=== PATIENT | male | born 1955 | race Caucasian/White ===

== ENCOUNTER 2021-12-12 08:16 | Outpatient (CLI) | payer MEDICARE, BC | END 2021-12-12 08:17 | disposition home or self-care (01) | LOC: BICULT 08:16 | PROVIDERS: ATTEND Registered Nurse Community Health | DX: E04.9 Nontoxic goiter, unspecified (principal) | CPT/HCPCS: 76536 ==

== ENCOUNTER 2023-12-23 08:22 | Day surgery (SDC) | payer MEDICARE, BC ==
[2023-12-22 14:37] VITALS: BMI 29.8
[~2023-12-23 08:22] MED LIST: Fluorouracil 100 MG, Enoxaparin 25 MG, EPINEPHrine 0.3 MG in Ophthalmic Irrigation Solu... IRR SCH
[2023-12-23] MEDS ORDERED: fentaNYL PF 100 MCG/2 ML SYRINGE ONE (09:12)
[2023-12-23] MEDS ORDERED: PROPOFOL 20 ML ONE (09:13)
[2023-12-23] MEDS ORDERED: Lidocaine 1% PF 5 ML VIAL ONE (09:13)
[2023-12-23] MEDS ORDERED: PHENYLephrine 2.5% Ophth Soln 15 ml Bottle ONE (09:52)
[2023-12-23] MEDS ORDERED: Cyclopentolate 2% Opth Drop 15 ML BOT ONE (09:52)
[2023-12-23 10:08] LABS: Anion Gap 14 mmol/L (10-20); BUN (Urea Nitrogen) 20 mg/dL (8.4-25.7); Calc. Creatinine Clearance 108 mL/min (70-130); Calcium 9.7 mg/dL (7.8-10.44); Carbon Dioxide 25 mmol/L (23-31); Chloride 105 mmol/L (98-107); Estimated GFR 91; Glucose 115 mg/dL (80-115); Potassium 4.7 mmol/L (3.5-5.1); Sodium 139 mmol/L (136-145)
[2023-12-23] MEDS ORDERED: ePHEDrine Sulfate 50 MG/10 ML VIAL ONE (10:26)
[2023-12-23] MEDS ORDERED: Lidocaine 4% PF 5 ML AMP ONE (10:37)
[2023-12-23] MEDS ORDERED: Enoxaparin 30 MG (0.3 mL) SYRINGE ONE (10:37)
[2023-12-23] MEDS ORDERED: CEFAZOLIN 1 GM VIAL ONE (10:37)
[2023-12-23] MEDS ORDERED: Bupivacaine 0.75% 10 ML VIAL ONE (10:37)
[2023-12-23] MEDS ORDERED: Triamcinolone 40 MG/ML VIAL ONE (10:37)
[2023-12-23] MEDS ORDERED: Ondansetron PF 4 MG/2 ML Vial ONE (12:10)
[2023-12-23] MEDS ORDERED: Midazolam HCl 2 mg/2 ml Vial ONE (12:25)
== END 2023-12-23 14:15 | disposition home or self-care (01) ==
LOC: SDC 08:22
PROVIDERS: ATTEND Ophthalmology Retina Specialist
PROC: 08943ZZ Drainage of Right Vitreous, Percutaneous Approach (ICD-10-PCS; principal; 2023-12-23)
DX: H33.021 Retinal detachment with multiple breaks, right eye (principal)
CPT/HCPCS: 67113; 80048; 93005; C1814; J0171; J0690; J1650; J2250; J2405; J2704; J3301; J3490; J9190; 93010

== ENCOUNTER 2024-04-20 06:28 | Day surgery (SDC) | payer MEDICARE, BC ==
[2024-04-18 11:06] VITALS: BMI 29.8
[~2024-04-20 06:28] MED LIST changes: +EPINEPHrine 0.3 MG in Ophthalmic Irrigation Solution 500 ML IRR SCH; -Fluorouracil 100 MG, Enoxaparin 25 MG, EPINEPHrine 0.3 MG in Ophthalmic Irrigation Solu... IRR SCH; +PHENYLephrine 2.5% Ophth Soln 15 ml Bottle ONE
[2024-04-20] MEDS ORDERED: Cyclopentolate 1% Opth Drop 2 ML BOT ONE (06:29)
[2024-04-20] MEDS ORDERED: PROPOFOL 20 ML ONE (06:59)
[2024-04-20] MEDS ORDERED: fentaNYL PF 100 MCG/2 ML SYRINGE ONE (06:59)
[2024-04-20] MEDS ORDERED: Midazolam HCl 2 mg/2 ml Vial ONE (06:59)
[2024-04-20] MEDS ORDERED: Maxitrol 0.1% Opth Oint 3.5 GM TUBE ONE (07:11)
[2024-04-20] MEDS ORDERED: Bupivacaine 0.75% 10 ML VIAL ONE (07:11)
[2024-04-20] MEDS ORDERED: Lidocaine 4% PF 5 ML AMP ONE (07:11)
[2024-04-20] MEDS ORDERED: Triamcinolone 40 MG/ML VIAL ONE (07:11)
[2024-04-20] MEDS ORDERED: Lidocaine 1% PF 5 ML VIAL ONE (07:11)
[2024-04-20] MEDS ORDERED: Naloxone HCl 0.4 mg/ml Vial ONE (07:11)
[2024-04-20] MEDS ORDERED: CEFAZOLIN 1 GM VIAL ONE (07:11)
== END 2024-04-20 08:54 | disposition home or self-care (01) ==
LOC: SDC 06:28
PROVIDERS: ATTEND Ophthalmology Retina Specialist
PROC: 08T43ZZ Resection of Right Vitreous, Percutaneous Approach (ICD-10-PCS; principal; 2024-04-20)
DX: H43.391 Other vitreous opacities, right eye (principal); I10 Essential (primary) hypertension; Z79.899 Other long term (current) drug therapy
CPT/HCPCS: 67041; J0171; J0690; J2250; J2704; J3301; J3490; J2310